=== PATIENT | female | born 1955 | race African-American/Black ===

== ENCOUNTER 2019-04-30 20:37 | Inpatient (IN) | payer MEDICARE, OTHER ==
[2019-04-30] MEDS ORDERED: SODIUM CHLORIDE 1,000 ML IV STA (21:31)
[2019-04-30] MEDS ORDERED: ONDANSETRON 4 MG/2 ML VIAL IVPUSH ONE (21:34)
--- NOTE | 2019-04-30 21:44 | PDOC ---
History of Present Illness - General Stated Complaint: FELL Time Seen by Provider: 04/30/19 20:44 History Source: Patient Exam Limitations: No Limitations - History of Present Illness Initial Comments: 04/30/19 21:32 64 yo female pmh HTN, gout, GERD and vertigo presents to the ED from home after generalized weakness and a fall. Pt states she had an endoscopy 04/17/2019 at [facility] by Dr. Mckeon, since then has had pain and bloating after eating and has not eaten or drank for the last 5 days. Hiatal hernia found and negative biopsy. Pt also admits to no BM for 12 days. Denies CP, SOB, back pain , changes in bowel or bladder habits Pt states she got up to get food, felt the room spinning around her, fell backwards onto her buttocks without hitting head or LOC, denies CASILLAS, changes in vision/speech, weakness on 1 side of her body, CP/SOB/Palpitations prior to or after the fall. Pt was unable to ambulate/get up on her own (pt lives alone, does not require any assist device for ambulation) called maintenance who then called the ambulance. Past History - Past Medical History Allergies/Adverse Reactions: Allergies Allergy/AdvReac Type Severity Reaction Status Date / Time No Known Allergies Allergy Verified 04/30/19 22:36 Home Medications: Ambulatory Orders Carvedilol 12.5 mg PO DAILY 04/30/19 Oxycodone HCl/Acetaminophen [Oxycodone-Acetaminophen 5-325] 1 each PO PRN PRN Pantoprazole Sodium 40 mg PO DAILY 04/30/19 Enoxaparin [Lovenox -] 40 mg SQ DAILY disp.syrin 05/03/19 Promethazine Inj (IM Use Only) [Phenergan (IM Use Only) -] 25 mg IM Q8H PRN amp 05/03/19 Review of Systems - Review of Systems Constitutional: Yes: See HPI HEENTM: Yes: See HPI Respiratory: Yes: See HPI Cardiac (ROS): Yes: See HPI ABD/GI: Yes: See HPI : Yes: See HPI Musculoskeletal: Yes: See HPI Integumentary: Yes: See HPI Neurological: Yes: See HPI *Physical Exam - Physical Exam General Appearance: Yes: Nourished, Appropriately Dressed. No: Apparent Distress HEENT: positive: EOMI, ANIBAL Neck: positive: Supple. negative: Carotid bruit Respiratory/Chest: positive: Lungs Clear, Normal Breath Sounds. negative: Respiratory Distress, Crackles, Rales, Rhonchi, Stridor, Wheezing Cardiovascular: positive: Regular Rhythm, Regular Rate, S1, S2. negative: Edema , JVD, Murmur Vascular Pulses: Dorsalis-Pedis (R): 4+, Doralis-Pedis (L): 4+ Gastrointestinal/Abdominal: positive: Flat, Soft. 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 negative: Facial Droop, Sensory Deficit, Confused, Disoriented, Depressed Affect ED Treatment Course - LABORATORY CBC & Chemistry Diagram: 05/02/19 06:50 05/02/19 06:50 Medical Decision Making - Medical Decision Making 64 yo female pmh HTN, gout, GERD and vertigo presents to the ED from home after generalized weakness and a fall. Pt states she had an endoscopy 04/17/2019 at [facility] by Dr. Mckeon, since then has had pain and bloating after eating and has not eaten or drank for the last 5 days. Hiatal hernia found and negative biopsy. Pt also admits to no BM for 12 days. Denies CP, SOB, back pain , changes in bowel or bladder habits Pt states she got up to get food, felt the room spinning around her, fell backwards onto her buttocks without hitting head or LOC, denies CASILLAS, changes in vision/speech, weakness on 1 side of her body, CP/SOB/Palpitations prior to or after the fall. Pt was unable to ambulate/get up on her own (pt lives alone, does not require any assist device for ambulation) called maintenance who then called the ambulance. Vitals WNL DDX INLT: dehydration, malnutrition, ulcer, SBO, arrhythmia, anemia, electrolyte abnormality Pt friend present, states this is a sudden change in pt ADLs and does not believe she can adequately care for herself at home. EMS state the house was very unkept and pt hoards materials Labs show elevated lactate and low K CXR no acute path Abd x ray no free air or acute path Rectal shows no stool in the vault, stool for blood neg pt will be admitted for hypokalemia, elevated lactate and malnutrition *DC/Admit/Observation/Transfer Diagnosis at time of Disposition: Elevated lactic acid level, Hypokalemia, Abdominal pain - Discharge Dispostion Disposition: TRANSFER ACUTE CARE/OTHER HOSP Condition at time of disposition: Unchanged/Unknown Decision to Admit order: Yes - Referrals - Patient Instructions - Post Discharge Activity
--- NOTE | 2019-04-30 22:15 | PDOC ---
Documentation entered by Gerry Carl SCRIBE, acting as scribe for Lashay Rivera DO. Lashay Rivera DO: This documentation has been prepared by the Siddhartha rosario Daniel, SCRIBE, under my direction and personally reviewed by me in its entirety. I confirm that the documentation accurately reflects all work, treatment, procedures, and medical decision making performed by me. Attending Attestation - Resident Resident Name: Kaleb Alcantar - ED Attending Attestation I have performed the following: I have examined & evaluated the patient, The case was reviewed & discussed with the resident, I agree w/resident's findings & plan, Exceptions are as noted - HPI HPI: 04/30/19 21:48 The patient is a 64 year old female with a past medical history of HTN, GERD, GOUT, and vertigo here today for evaluation of generalized weakness and fall. The patient reports that she has had difficulty eating and had an endoscopy on in [place] which showed a hiatal hernia. She reports today that the room began to spin, she fell backwards (no head strike or loss of consciousness) , and was unable to get up. She states that she hasnt eaten anything in 5 days. She notes associated nausea and vomiting and notes that her last bowel movement was on 04/17/19. Patient denies headache, lightheadedness. Denies fever, chills. Denies chest pain, shortness of breath. Denies diarrhea. Allergies: PCP: Naty Conway - Physicial Exam PE: 04/30/19 22:19 Constitutional: Awake, alert, oriented. No acute distress but disheveled appearing. Head: Normocephalic. Atraumatic Eyes: PERRL. EOMI. Conjunctivae are not pale. ENT: +very dry mucous membranes. Posterior pharynx without exudates or erythema. Uvula midline. Neck: Supple. Full ROM. No lymphadenopathy. Cardiovascular: Regular rate. Regular rhythm. S1, S2 regular. Distal pulses are 2+ and symmetric. Pulmonary/Chest: No evidence of respiratory distress. Clear to auscultation bilaterally No wheezing, rales or rhonchi. Abdominal: +mild epigastric and suprapubic tenderness. Soft and non-distended. No rebound, guarding or rigidity. No organomegaly. No palpable masses. Good bowel sounds. Back: No CVA tenderness. Musculoskeletal: No edema. No cyanosis. No clubbing. Full range of motion in all extremities. No calf tenderness. Radial/pedal pulses are intact and 2+ bilaterally Skin: Skin is warm and dry. No petechiae. No purpura. Neurological: Alert and oriented to person, place, and time. Cranial nerves II -XII are grossly intact. Normal speech. Strength is grossly symmetric. No sensory deficits. Psychiatric: Good eye contact. Normal interaction, affect and behavior. - Medical Decision Making 04/30/19 22:11 a/p: 64yo female with n/v and a feeling of bloating before an EGD performed 04/17 - at [facility] -states on protonix -states protonix has been helping, but decreased po intake x months -50lb wt loss x months -told hiatal hernia on egd -still with n/v - feeling lightheaded and dizzy, fall today - landed on buttock - no loc or head injury - unable to get up -pt lives alone -pt arrives disheveled -will send labs, ekg, cxr, abd xray -no bm since 04/17 -will monitor and reassess 04/30/19 23:44 cxr clear elevated lactate ivf hydration ordered 05/01/19 02:03 pt with elevated lactate low potassium electrolyte abnl will need admission Heart Score/ECG Review - ECG Intrepretation Comment:: 04/30/19 22:11 sinus at 70, nl axis, t wave inversions anterior leads, q waves inferiorly which are age indeterminate, no acute st changes
[2019-04-30 22:21] LABS: BASO % 0.6 % (0-2.0); EOS % 0.1 % (0-4.5); HEMATOCRIT 41.3 % (32.4-45.2); LYMPH % 11.5 % (8-40); MCH 28.8 pg (25.7-33.7); MEAN CELL VOLUME 84.7 fl (80-96); MEAN PLT VOLUME 8.3 fl (7.5-11.1); MONO % 5.3 % (3.8-10.2); NEUT % 82.5 % (42.8-82.8); PLATELET COUNT 261 K/MM3 (134-434); RBC 4.87 M/mm3 (3.60-5.2); WHITE BLOOD COUNT 11.4 K/mm3 (4.0-10.0)
[2019-04-30] MEDS ORDERED: SODIUM CHLORIDE 0.9% 1000 ML INFUS.BAG IV ONE (22:45)
[2019-05-01] MEDS ORDERED: FAMOTIDINE 20 MG/50 ML IVPB 20 MG/50 ML MG IVPB ONE ×2 (00:02→00:09)
[2019-05-01] MEDS ORDERED: MAG HYDROX/AL HYDROX/SIMETH -MYLANTA- ORAL SUSPENSION PO ONE (00:02)
[2019-05-01] MEDS ORDERED: MAG HYDROX/AL HYDROX/SIMETH 30 ML UNIT-DOSE CUP ONE (00:09)
[2019-05-01 00:32] LABS: ALBUMIN 3.5 g/dl (3.4-5.0); BILIRUBIN,TOTAL 1.4 mg/dL (0.2-1); BLOOD UREA NITROGEN 19.2 mg/dL (7-18); CREATININE 0.7 mg/dL (0.55-1.3); TOT PROT 7.5 g/dl (6.4-8.2)
[2019-05-01] MEDS ORDERED: POTASSIUM CHLORIDE 20 MEQ PREMIX IVPB 100 ML IVPB ONE ×2 (00:40→04:17)
[2019-05-01 00:41] LABS: POTASSIUM 2.7 mmol/L (3.5-5.1)
[2019-05-01] MEDS ORDERED: POTASSIUM CHLORIDE TABS 20 MEQ TABLET.ER (FP) PO ONE ×2 (00:55→01:41)
--- NOTE | 2019-05-01 03:31 | PN ---
Teaching Attending Note Name of Resident: Queenie Rubio ATTENDING PHYSICIAN STATEMENT I saw and evaluated the patient. I reviewed the resident's note and discussed the case with the resident. I agree with the resident's findings and plan as documented. SUBJECTIVE: Patient is a 64 year old woman with PMH of HTN, Gout, GERD and vertigo who presents to the ED from home after generalized weakness and a fall. Patient says she got up to get food, felt the room spinning around her, fell backwards onto her buttocks without hitting head or passing out. Denies headache, changes in vision/speech, weakness on one side of her body, palpitations prior to or after the fall. She was unable to ambulate/get up on her own (lives alone, does not require any assist device for ambulation). Has dysphagia with solids and feels like food is stuck in her chest. Patient is an ex-smoker who quit last month and has a family history of GI cancer. She states that she had an endoscopy 04/17/2019 at [facility] by Dr. Mckeon - since then has had pain and bloating after eating and has not eaten or drank for the last 5 days. Hiatal hernia found and negative biopsy. Was supposed to get a colonoscopy, but not yet due to health insurance issues. Has lost a lot of weight recently and had poor oral intake. Patient has not had a BM for 12 days. Denies chest pain, SOB, back pain or changes in bladder habits. OBJECTIVE: Alert and not orthostatic Vital Signs Period Temp Pulse Resp BP Sys/Sy Pulse Ox Last 24 Hr 97.5 F 84 18 149/91 100-100 HEENT: No Jaundice, eye redness or discharge, PERRLA, EOMI. Normocephalic, atraumatic. External ears are normal and hearing is grossly intact. No nasal discharge. Neck: Supple, nontender. No palpable adenopathy or thyromegaly. No JVD Chest: Good effort. Clear to auscultation and percussion. Heart: Regular. No S3, rub or murmur Abdomen: Not distended, soft, epigastric tenderness and no HSM. No rebound or guarding. Normal bowel sounds. Ext: Peripheral pulses intact. No leg edema. Skin: Warm and dry. No petechiae, rash or ecchymosis. Neuro: Alert. Oriented x3. CN 2-12 grossly intact. Sensation grossly intact in all four extremities and DTR are symmetric. Psych: Appropriate mood and affect. Good insight. Home Medications Medication Instructions Recorded Carvedilol 12.5 mg PO DAILY 04/30/19 Hydrochlorothiazide [Hctz -] 0 mg PO DAILY 04/30/19 Oxycodone HCl/Acetaminophen 1 each PO PRN PRN 04/30/19 [Oxycodone-Acetaminophen 5-325] Pantoprazole Sodium 40 mg PO DAILY 04/30/19 Abnormal Lab Results 04/30/19 04/30/19 04/30/19 22:00 22:00 22:50 WBC 11.4 H Absolute Neuts (auto) 9.4 H Potassium 2.7 L* Chloride 95 L Anion Gap 20 H BUN 19.2 H Lactic Acid 3.0 H* Total Bilirubin 1.4 H AST 44 H Alkaline Phosphatase 138 H Creatine Kinase 281 H Lipase 43 L ASSESSMENT AND PLAN: 1. Fall/Rule out Sepsis - Cause of her fall is unclear but sepsis is a concern with the focus being on the hepatobiliary system. Urinalysis is pending and there is no acute abnormality on CXR. Will do sepsis workup, get urinalysis STAT , head/abdomen/pelvic CT, hepatitis serology, trend LFTS and lactic acid while treating with IV Zosyn and IV NS. EKG is pending. Consult GI to continue workup for dysphagia and weight loss. Get results of endoscopy from [facility]. Get TFT and serum Mg+ level. Hypokalemia likely due to HCTZ and poor intake. Will continue IV and oral KCL. 2. Obesity Counseled on the risks associated with obesity. Will provide patient all the necessary assistance, counseling and positive reinforcement to facilitate weight loss. Consult marketing planning manager. 3. Hypertension - Restart suitable outpatient antihypertensive drugs when clinically appropriate. Revise regimen to ensure [id number] excellent BP control and certified addiction counselor patient on the injurious effects of uncontrolled hypertension. Nonpharmacologic measures to control hypertension like weight loss , salt restriction and exercise discussed. Importance of adherence to treatment regimen and attainment of normotension emphasized. 4. DVT prophylaxis - Lovenox 40 mg SQ q 24 hours. 5. Advance directives - Full code
[2019-05-01] MEDS ORDERED: SODIUM CHLORIDE 1,000 ML IV SCH (04:30)
--- NOTE | 2019-05-01 04:34 | HP ---
CHIEF COMPLAINT: vomiting, decreased po intake PCP: Dr. Wilburn HISTORY OF PRESENT ILLNESS: Patient is a 64 year old female with PMH of HTN, GERD, gout, vertigo who presents with nausea, vomiting, and difficulty eating for several weeks. When she eats, she feels the food get stuck at the top of her abdomen and then she vomits. She denies difficulty swallowing fluids. She complains of associated nausea, upper abd pain, and fatigue. She has also had decreased stool since the onset of symptoms. Denies any blood in stool or vomit. She has taken protonix for these symptoms with moderate relief. Pt has lost ~50 pounds (unintentionally ) over the past 3-4 months. No fevers, chills, SOB, chest pain, or urinary symptoms. Pt saw a GI doctor at [facility] one month ago and had an EGD on 04/16 that showed a hiatal hernia. Per pt, biopsies were taken and were all negative. She states that she has not had a colonoscopy in many years. Pt also complains of vertigo. These episodes occur 1-2 times per year and are preceded with PND. Last episode occurred yesterday and pt fell. She did not hit her head or lose consciousness. ER course was notable for: (1) Lactic acidosis: WBC: 11.4, K: 2.7, A, Lactic acid: 3; but afebrile, stable vitals (2) CXR, Abd XR: no acute pathology noted (3) Given 2L boluses NS, zofran, myl[place], pepcid. Repleted potassium Recent Travel: denies PAST MEDICAL HISTORY: HTN GERD Gout vertigo PAST SURGICAL HISTORY: Social History: Smoking: quit 1 month ago (previously smoked 6 cigarettes/day for many years) Alcohol: ocassionally Drugs: denies Family History: Mother: HTN Father: colon CA Grandfather: gastric CA Allergies No Known Allergies Allergy (Verified 04/30/19 22:36) HOME MEDICATIONS: Home Medications Medication Instructions Recorded Carvedilol 12.5 mg PO DAILY 04/30/19 Hydrochlorothiazide [Hctz -] 0 mg PO DAILY 04/30/19 Oxycodone HCl/Acetaminophen 1 each PO PRN PRN 04/30/19 [Oxycodone-Acetaminophen 5-325] Pantoprazole Sodium 40 mg PO DAILY 04/30/19 REVIEW OF SYSTEMS CONSTITUTIONAL: generalized weakness, loss of appetite, weight change Absent: fever, chills, diaphoresis, malais HEENT: PND, difficulty swallowing Absent: rhinorrhea, nasal congestion, throat pain, throat swelling, mouth swelling, ear pain, eye pain, visual changes CARDIOVASCULAR: Absent: chest pain, syncope, palpitations, irregular heart rate, lightheadedness , peripheral edema RESPIRATORY: Absent: cough, shortness of breath, dyspnea with exertion, orthopnea, wheezing, stridor, hemoptysis GASTROINTESTINAL: nausea, vomiting, RUQ pain Absent: abdominal pain, abdominal distension, nausea, vomiting, diarrhea, constipation, melena, hematochezia GENITOURINARY: Absent: dysuria, frequency, urgency, hesitancy, hematuria, flank pain, genital pain MUSCULOSKELETAL: Absent: myalgia, arthralgia, joint swelling, back pain, neck pain SKIN: Absent: rash, itching, pallor HEMATOLOGIC/IMMUNOLOGIC: Absent: easy bleeding, easy bruising, lymphadenopathy, frequent infections ENDOCRINE: Absent: unexplained weight gain, unexplained weight loss, heat intolerance, cold intolerance NEUROLOGIC: vertigo Absent: headache, focal weakness or paresthesias, dizziness, unsteady gait, seizure, mental status changes, bladder or bowel incontinence PSYCHIATRIC: Absent: anxiety, depression, suicidal or homicidal ideation, hallucinations. PHYSICAL EXAMINATION Vital Signs - 24 hr 04/30/19 20:50 Temperature 97.5 F L Pulse Rate 84 Respiratory 18 Rate Blood Pressure 149/91 O2 Sat by Pulse 100 Oximetry (%) GENERAL: Awake, alert, and fully oriented, in no acute distress. HEAD: Normal with no signs of trauma. EYES: Pupils equal, round and reactive to light, extraocular movements intact, sclera anicteric, conjunctiva clear. No lid lag. EARS, NOSE, THROAT: Ears normal, nares patent, oropharynx clear without exudates. Moist mucous membranes. NECK: Normal range of motion, supple without lymphadenopathy, JVD, or masses. LUNGS: Breath sounds equal, clear to auscultation bilaterally. No wheezes, and no crackles. No accessory muscle use. HEART: Regular rate and rhythm, normal S1 and S2 without murmur, rub or gallop. ABDOMEN: Soft, RUQ tenderness, not distended, normoactive bowel sounds, no guarding, no rebound, no masses. No hepatomegaly or splenomegaly. RECTAL: No internal or external hemorrhoids. No masses. Good sphincter tone. No gross blood on glove. MUSCULOSKELETAL: Normal range of motion at all joints. No bony deformities or tenderness. No CVA tenderness. UPPER EXTREMITIES: 2+ pulses, warm, well-perfused. No cyanosis. No clubbing. No peripheral edema. LOWER EXTREMITIES: 2+ pulses, warm, well-perfused. No calf tenderness. No peripheral edema. Toes cold to touch and poorly kempt. NEUROLOGICAL: Cranial nerves II-XII intact. Normal speech. Normal gait. PSYCHIATRIC: Cooperative. Good eye contact. Appropriate mood and affect. SKIN: Warm, dry, normal turgor, no rashes or lesions noted, normal capillary refill. Laboratory Results - last 24 hr CBC, BMP 04/30/19 22:00 04/30/19 22:50 Hepatic Panel Total Bilirubin 1.4 mg/dL (0.2-1) H AST 44 U/L (15-37) H ALT 47 U/L (13-61) Alkaline Phosphatase 138 U/L (45-117) H Albumin 3.5 g/dl (3.4-5.0) ASSESSMENT/PLAN: Patient is a 64 year old female with PMH of HTN, GERD, gout, vertigo who presents with nausea, vomiting, and difficulty eating for several weeks. #Lactic acidosis Concern for sepsis, unknown source. Given pt's RUQ tenderness, GI symptoms, and elevated LFTs/Tbili, suspect hepatobiliary cause Abd XR showed no acute pathology F/u CT abd/pelvis and head F/u UA, hepatitis serology, trend lactic acid, and LFTs Will empirically treat with IV zosyn 3.375mg Q8H and IV NS @ 100ml/hr #Dysphagia, vomiting, decreased po intake, and weight loss Recent EGD showed hiatal hernia, neg biopsies. Obtain official EGD results from [facility]. Consulting GI for dysphagia w/u Hypokalemia likely 2/2 to decreased po intake as well as Hctz medication. Repleting with KCl F/u serum magnesium and cont to trend LFTs #HTN Hold BP medications in possible setting of sepsis and poor po intake Will restart if pt becomes hypertensive/when clinically appropriate #Vertigo Recommend meclizime if needed Vestibular rehab as outpt #FEN IV NS @ 100ml/hr Repleting potassium with IV KCl NPO for now #DVT ppx Lovenox 40mg SQ #Dispo Monitor on med-surg Full code Visit type - Emergency Visit Emergency Visit: Yes ED Registration Date: 05/01/19 Care time: The patient presented to the Emergency Department on the above date and was hospitalized for further evaluation of their emergent condition. - New Patient This patient is new to me today: Yes Date on this admission: 05/01/19 - Critical Care Critical Care patient: No ATTENDING PHYSICIAN STATEMENT I saw and evaluated the patient. I reviewed the resident's note and discussed the case with the resident. I agree with the resident's findings and plan as documented. SUBJECTIVE: OBJECTIVE: ASSESSMENT AND PLAN:
[2019-05-01] MEDS ORDERED: PIPERACILLIN/TAZOB 3.375 GM 3.375 GM/50 ML BAG IVPB ONE (05:23)
[2019-05-01 05:31] LABS: EPI CELLS 4.9 /HPF (0-5/HPF); HYALINE CASTS 33 /lpf (0-8); PH,URINE 6.5 (5.0-8.0); URINE APPEARANCE CLOUDY; URINE BACTERIA 0.5 /hpf (NEGATIVE); URINE BILIRUBIN 3+ (NEGATIVE); URINE COLOR DK YELLOW; URINE GLUCOSE (UA) NEGATIVE (NEGATIVE); URINE KETONE 2+ (NEGATIVE); URINE LEUK ESTERASE TRACE (NEGATIVE); URINE NITRITE POSITIVE (NEGATIVE); URINE PROTEIN 1+ (NEGATIVE); URINE WBC 3 /hpf (0-5)
[2019-05-01] MEDS: PIPERACILLIN/TAZOB 3.375 GM 3.375 GM in DEXTROSE 5%-WATER - 50 ML IVPB SCH ×4 (05:35→18:49)
[2019-05-01] MEDS ORDERED: PANTOPRAZOLE 40 MG TABLET (FP) PO SCH (07:00)
--- NOTE | 2019-05-01 07:31 | HP ---
CHIEF COMPLAINT: PCP: HISTORY OF PRESENT ILLNESS: ER course was notable for: (1) (2) (3) Recent Travel: PAST MEDICAL HISTORY: PAST SURGICAL HISTORY: Social History: Smoking: Alcohol: Drugs: Family History: Allergies No Known Allergies Allergy (Verified 04/30/19 22:36) HOME MEDICATIONS: Home Medications Medication Instructions Recorded Carvedilol 12.5 mg PO DAILY 04/30/19 Hydrochlorothiazide [Hctz -] 0 mg PO DAILY 04/30/19 Oxycodone HCl/Acetaminophen 1 each PO PRN PRN 04/30/19 [Oxycodone-Acetaminophen 5-325] Pantoprazole Sodium 40 mg PO DAILY 04/30/19 REVIEW OF SYSTEMS CONSTITUTIONAL: Absent: fever, chills, diaphoresis, generalized weakness, malaise, loss of appetite, weight change HEENT: Absent: rhinorrhea, nasal congestion, throat pain, throat swelling, difficulty swallowing, mouth swelling, ear pain, eye pain, visual changes CARDIOVASCULAR: Absent: chest pain, syncope, palpitations, irregular heart rate, lightheadedness , peripheral edema RESPIRATORY: Absent: cough, shortness of breath, dyspnea with exertion, orthopnea, wheezing, stridor, hemoptysis GASTROINTESTINAL: Absent: abdominal pain, abdominal distension, nausea, vomiting, diarrhea, constipation, melena, hematochezia GENITOURINARY: Absent: dysuria, frequency, urgency, hesitancy, hematuria, flank pain, genital pain MUSCULOSKELETAL: Absent: myalgia, arthralgia, joint swelling, back pain, neck pain SKIN: Absent: rash, itching, pallor HEMATOLOGIC/IMMUNOLOGIC: Absent: easy bleeding, easy bruising, lymphadenopathy, frequent infections ENDOCRINE: Absent: unexplained weight gain, unexplained weight loss, heat intolerance, cold intolerance NEUROLOGIC: Absent: headache, focal weakness or paresthesias, dizziness, unsteady gait, seizure, mental status changes, bladder or bowel incontinence PSYCHIATRIC: Absent: anxiety, depression, suicidal or homicidal ideation, hallucinations. PHYSICAL EXAMINATION Vital Signs - 24 hr 04/30/19 05/01/19 05/01/19 20:50 05:53 07:00 Temperature 97.5 F L 97.6 F 98.4 F Pulse Rate 84 61 Pulse Rate [ 65 Right Radial] Respiratory 18 18 20 Rate Blood Pressure 149/91 134/89 Blood Pressure 158/67 [Left Arm] O2 Sat by Pulse 100 100 Oximetry (%) GENERAL: Awake, alert, and fully oriented, in no acute distress. HEAD: Normal with no signs of trauma. EYES: Pupils equal, round and reactive to light, extraocular movements intact, sclera anicteric, conjunctiva clear. No lid lag. EARS, NOSE, THROAT: Ears normal, nares patent, oropharynx clear without exudates. Moist mucous membranes. NECK: Normal range of motion, supple without lymphadenopathy, JVD, or masses. LUNGS: Breath sounds equal, clear to auscultation bilaterally. No wheezes, and no crackles. No accessory muscle use. HEART: Regular rate and rhythm, normal S1 and S2 without murmur, rub or gallop. ABDOMEN: Soft, nontender, not distended, normoactive bowel sounds, no guarding, no rebound, no masses. No hepatomegaly or splenomegaly. MUSCULOSKELETAL: Normal range of motion at all joints. No bony deformities or tenderness. No CVA tenderness. UPPER EXTREMITIES: 2+ pulses, warm, well-perfused. No cyanosis. No clubbing. No peripheral edema. LOWER EXTREMITIES: 2+ pulses, warm, well-perfused. No calf tenderness. No peripheral edema. NEUROLOGICAL: Cranial nerves II-XII intact. Normal speech. Normal gait. PSYCHIATRIC: Cooperative. Good eye contact. Appropriate mood and affect. SKIN: Warm, dry, normal turgor, no rashes or lesions noted, normal capillary refill. Laboratory Results - last 24 hr 04/30/19 04/30/19 04/30/19 22:00 22:00 22:00 WBC 11.4 H RBC 4.87 Hgb 14.0 Hct 41.3 MCV 84.7 MCH 28.8 MCHC 34.0 RDW 14.0 Plt Count 261 MPV 8.3 Absolute Neuts (auto) 9.4 H Neutrophils % 82.5 Lymphocytes % 11.5 Monocytes % 5.3 Eosinophils % 0.1 Basophils % 0.6 Nucleated RBC % 0 Sodium Cancelled Potassium Cancelled Chloride Cancelled Carbon Dioxide Cancelled Anion Gap Cancelled BUN Cancelled Creatinine Cancelled Est GFR (CKD-EPI)AfAm Cancelled Est GFR (CKD-EPI)NonAf Cancelled Random Glucose Cancelled Lactic Acid 3.0 H* Calcium Cancelled Magnesium Total Bilirubin Cancelled AST Cancelled ALT Cancelled Alkaline Phosphatase Cancelled Creatine Kinase Cancelled Creatine Kinase Index CK-MB (CK-2) Troponin I Cancelled Total Protein Cancelled Albumin Cancelled Lipase Cancelled Urine Color Urine Appearance Urine pH Ur Specific [place] Urine Protein Urine Glucose (UA) Urine Ketones Urine Blood Urine Nitrite Urine Bilirubin Urine Urobilinogen Ur Leukocyte Esterase Urine WBC (Auto) Urine Casts (Auto) U Epithel Cells (Auto) Urine Bacteria (Auto) Stool Occult Blood 04/30/19 04/30/19 05/01/19 22:29 22:50 03:25 WBC RBC Hgb Hct MCV MCH MCHC RDW Plt Count MPV Absolute Neuts (auto) Neutrophils % Lymphocytes % Monocytes % Eosinophils % Basophils % Nucleated RBC % Sodium 139 Potassium 2.7 L* Chloride 95 L Carbon Dioxide 24 Anion Gap 20 H BUN 19.2 H Creatinine 0.7 Est GFR (CKD-EPI)AfAm 106.12 Est GFR (CKD-EPI)NonAf 91.56 Random Glucose 96 Lactic Acid 1.9 Calcium 10.0 Magnesium 2.0 Total Bilirubin 1.4 H AST 44 H ALT 47 Alkaline Phosphatase 138 H Creatine Kinase 281 H Creatine Kinase Index 1.2 CK-MB (CK-2) 3.5 Troponin I 0.02 Total Protein 7.5 Albumin 3.5 Lipase 43 L Urine Color Urine Appearance Urine pH Ur Specific [place] Urine Protein Urine Glucose (UA) Urine Ketones Urine Blood Urine Nitrite Urine Bilirubin Urine Urobilinogen Ur Leukocyte Esterase Urine WBC (Auto) Urine Casts (Auto) U Epithel Cells (Auto) Urine Bacteria (Auto) Stool Occult Blood Negative 05/01/19 05:00 WBC RBC Hgb Hct MCV MCH MCHC RDW Plt Count MPV Absolute Neuts (auto) Neutrophils % Lymphocytes % Monocytes % Eosinophils % Basophils % Nucleated RBC % Sodium Potassium Chloride Carbon Dioxide Anion Gap BUN Creatinine Est GFR (CKD-EPI)AfAm Est GFR (CKD-EPI)NonAf Random Glucose Lactic Acid Calcium Magnesium Total Bilirubin AST ALT Alkaline Phosphatase Creatine Kinase Creatine Kinase Index CK-MB (CK-2) Troponin I Total Protein Albumin Lipase Urine Color Dk yellow Urine Appearance Cloudy Urine pH 6.5 Ur Specific [place] 1.028 Urine Protein 1+ H Urine Glucose (UA) Negative Urine Ketones 2+ H Urine Blood Negative Urine Nitrite Positive H Urine Bilirubin 3+ H Urine Urobilinogen 1.0 Ur Leukocyte Esterase Trace Urine WBC (Auto) 3 Urine Casts (Auto) 33 U Epithel Cells (Auto) 4.9 Urine Bacteria (Auto) 0.5 Stool Occult Blood ASSESSMENT/PLAN: ATTENDING PHYSICIAN STATEMENT I saw and evaluated the patient. I reviewed the resident's note and discussed the case with the resident. I agree with the resident's findings and plan as documented. SUBJECTIVE: OBJECTIVE: ASSESSMENT AND PLAN:
[2019-05-01] MEDS ORDERED: PT OWN MED DRAWER 7, Y5N ONE (07:35)
[2019-05-01 08:21] VITALS: BMI 34.0
[2019-05-01] MEDS ORDERED: D5-NS + 20 MEQ KCL - 20 MEQ/1,000 ML INFUS.BAG IV SCH (09:45)
[2019-05-01] MEDS ORDERED: D5-LR+20 MEQ KCL - 20 MEQ/1,000 ML INFUS.BAG IV SCH (09:45)
[2019-05-01] MEDS ORDERED: PIPERACILLIN/TAZOBACTAM 3.375 GM VIAL IVPB ONE ×2 (09:58→17:13)
[2019-05-01] MEDS ORDERED: DEXTROSE 5%-WATER - 50 ML IVPB ONE ×2 (09:59→17:13)
[2019-05-01] MEDS ORDERED: PANTOPRAZOLE SODIUM 40 MG VIAL IVPUSH SCH (10:00)
[2019-05-01] MEDS: ENOXAPARIN NA (PORCINE) 40 MG/0.4 ML DISP.SYRIN SQ SCH (10:28)
[2019-05-01 11:16] LABS: BASO % 0.1 % (0-2.0); EOS % 0.2 % (0-4.5); HEMATOCRIT 34.6 % (32.4-45.2); LYMPH % 16.5 % (8-40); MCH 29.2 pg (25.7-33.7); MCHC 34.6 g/dl (32.0-36.0); MEAN CELL VOLUME 84.3 fl (80-96); MONO % 6.7 % (3.8-10.2); NEUT % 76.5 % (42.8-82.8); PLATELET COUNT 217 K/MM3 (134-434); RDW 13.8 % (11.6-15.6); WHITE BLOOD COUNT 8.6 K/mm3 (4.0-10.0)
[2019-05-01 11:33] LABS: URINE RBC 5.7 /hpf (0-4)
[2019-05-01 11:34] LABS: BILIRUBIN,TOTAL 1.3 mg/dL (0.2-1); BLOOD UREA NITROGEN 16.2 mg/dL (7-18); CALCIUM 8.6 mg/dL (8.5-10.1); CREATININE 0.8 mg/dL (0.55-1.3); POTASSIUM 3.2 mmol/L (3.5-5.1); TOT PROT 6.2 g/dl (6.4-8.2)
[2019-05-01 11:36] LABS: ALBUMIN 2.9 g/dl (3.4-5.0); BILIRUBIN,DIRECT 0.6 mg/dL (0.0-0.2); BILIRUBIN,TOTAL 1.3 mg/dL (0.2-1); TOT PROT 6.2 g/dl (6.4-8.2)
--- NOTE | 2019-05-01 11:38 | EKG ---
Test Reason : Blood Pressure : / mmHG Vent. Rate : 070 BPM Atrial Rate : 070 BPM P-R Int : 150 ms QRS Dur : 088 ms QT Int : 452 ms P-R-T Axes : 057 023 028 degrees QTc Int : 488 ms POOR DATA QUALITY, INTERPRETATION MAY BE ADVERSELY AFFECTED NORMAL SINUS RHYTHM INFERIOR INFARCT , AGE UNDETERMINED T WAVE ABNORMALITY, CONSIDER ANTERIOR ISCHEMIA ABNORMAL ECG NO PREVIOUS ECGS AVAILABLE Confirmed by GEROGES GONZALEZ, SESAR ([id number]) on 05/01/2019 11:38:31 AM Referred By: Confirmed By:SESAR SU MD
--- NOTE | 2019-05-01 13:25 | PN ---
Teaching Attending Note Name of Resident: Rakesh Maradiaga ATTENDING PHYSICIAN STATEMENT I saw and evaluated the patient. I reviewed the resident's note and discussed the case with the resident. I agree with the resident's findings and plan as documented with exceptions below. SUBJECTIVE: Patient seen and examined. reports ongoing intermittent nausea, abdominal pain, poor appetite, unintentional weight loss and poor oral intake. OBJECTIVE: Vital Signs Period Temp Pulse Resp BP Sys/Sy Pulse Ox Last 24 Hr 97.5 F-98.4 F 57-84 18-20 134-158/67-91 100-100 Intake & Output 04/28/19 04/29/19 04/30/19 05/01/19 23:59 23:59 23:59 23:59 Intake Total 0 Balance 0 Weight 184 lb 198 lb General: lying in bed in no acute distress Neck; soft, supple Chest: CTAB, no rales or wheezing Abdomen:soft, vague generalized tenderness, on deep palpation, no voluntary or involuntary guarding or rigidity, pos bowel sounds extremities: no edema Home Medications Medication Instructions Recorded Carvedilol 12.5 mg PO DAILY 04/30/19 Hydrochlorothiazide [Hctz -] 0 mg PO DAILY 04/30/19 Oxycodone HCl/Acetaminophen 1 each PO PRN PRN 04/30/19 [Oxycodone-Acetaminophen 5-325] Pantoprazole Sodium 40 mg PO DAILY 04/30/19 Active Medications Enoxaparin Sodium (Lovenox -) 40 mg SQ DAILY PATRICK Last Admin: 05/01/19 10:28 Dose: 40 mg Piperacillin Sod/Tazobactam (Sod 3.375 gm/ Dextrose) 50 mls @ 100 mls/hr IVPB Q8H-IV PATRICK; Protocol Piperacillin Sod/Tazobactam (Sod 3.375 gm/ Dextrose) 50 mls @ 100 mls/hr IVPB Q8H-IV PATRICK Stop: 05/01/19 18:29 Last Admin: 05/01/19 10:28 Dose: 100 mls/hr Dextrose/Sodium Chloride (Dextrose 5%-Normal Saline+20 Meq Kcl -) 20 meq in 1, 000 mls @ 100 mls/hr IV ASDIR PATRICK Last Admin: 05/01/19 10:27 Dose: 100 mls/hr Potassium Chloride (Potassium Chloride 10 Meq Premix Ivpb -) 10 meq in 100 mls @ 100 mls/hr IVPB Q60M PATRICK Stop: 05/01/19 15:29 Pantoprazole Sodium (Protonix Iv) 40 mg IVPUSH DAILY [facility] Last Admin: 05/01/19 10:28 Dose: Not Given Laboratory Results - last 24 hr 04/30/19 04/30/19 04/30/19 22:00 22:00 22:00 WBC 11.4 H RBC 4.87 Hgb 14.0 Hct 41.3 MCV 84.7 MCH 28.8 MCHC 34.0 RDW 14.0 Plt Count 261 MPV 8.3 Absolute Neuts (auto) 9.4 H Neutrophils % 82.5 Lymphocytes % 11.5 Monocytes % 5.3 Eosinophils % 0.1 Basophils % 0.6 Nucleated RBC % 0 Sodium Cancelled Potassium Cancelled Chloride Cancelled Carbon Dioxide Cancelled Anion Gap Cancelled BUN Cancelled Creatinine Cancelled Est GFR (CKD-EPI)AfAm Cancelled Est GFR (CKD-EPI)NonAf Cancelled Random Glucose Cancelled Lactic Acid 3.0 H* Calcium Cancelled Magnesium Total Bilirubin Cancelled Direct Bilirubin AST Cancelled ALT Cancelled Alkaline Phosphatase Cancelled Creatine Kinase Cancelled Creatine Kinase Index CK-MB (CK-2) Troponin I Cancelled Total Protein Cancelled Albumin Cancelled Lipase Cancelled Urine Color Urine Appearance Urine pH Ur Specific [place] Urine Protein Urine Glucose (UA) Urine Ketones Urine Blood Urine Nitrite Urine Bilirubin Urine Urobilinogen Ur Leukocyte Esterase Urine WBC (Auto) Urine RBC (Auto) Urine Casts (Auto) U Pathogenic Cast Auto U Epithel Cells (Auto) Urine Bacteria (Auto) Stool Occult Blood 04/30/19 04/30/19 05/01/19 22:29 22:50 03:25 WBC RBC Hgb Hct MCV MCH MCHC RDW Plt Count MPV Absolute Neuts (auto) Neutrophils % Lymphocytes % Monocytes % Eosinophils % Basophils % Nucleated RBC % Sodium 139 Potassium 2.7 L* Chloride 95 L Carbon Dioxide 24 Anion Gap 20 H BUN 19.2 H Creatinine 0.7 Est GFR (CKD-EPI)AfAm 106.12 Est GFR (CKD-EPI)NonAf 91.56 Random Glucose 96 Lactic Acid 1.9 Calcium 10.0 Magnesium 2.0 Total Bilirubin 1.4 H Direct Bilirubin AST 44 H ALT 47 Alkaline Phosphatase 138 H Creatine Kinase 281 H Creatine Kinase Index 1.2 CK-MB (CK-2) 3.5 Troponin I 0.02 Total Protein 7.5 Albumin 3.5 Lipase 43 L Urine Color Urine Appearance Urine pH Ur Specific [place] Urine Protein Urine Glucose (UA) Urine Ketones Urine Blood Urine Nitrite Urine Bilirubin Urine Urobilinogen Ur Leukocyte Esterase Urine WBC (Auto) Urine RBC (Auto) Urine Casts (Auto) U Pathogenic Cast Auto U Epithel Cells (Auto) Urine Bacteria (Auto) Stool Occult Blood Negative 05/01/19 05/01/19 05/01/19 05:00 10:10 10:10 WBC 8.6 RBC 4.10 Hgb 12.0 Hct 34.6 D MCV 84.3 MCH 29.2 MCHC 34.6 RDW 13.8 Plt Count 217 MPV 8.0 Absolute Neuts (auto) 6.5 Neutrophils % 76.5 Lymphocytes % 16.5 D Monocytes % 6.7 Eosinophils % 0.2 D Basophils % 0.1 Nucleated RBC % 0 Sodium 142 Potassium 3.2 L Chloride 104 Carbon Dioxide 26 Anion Gap 12 BUN 16.2 Creatinine 0.8 Est GFR (CKD-EPI)AfAm 90.30 Est GFR (CKD-EPI)NonAf 77.91 Random Glucose 97 Lactic Acid Calcium 8.6 Magnesium Total Bilirubin 1.3 H Direct Bilirubin AST 43 H ALT 40 Alkaline Phosphatase 112 Creatine Kinase Creatine Kinase Index CK-MB (CK-2) Troponin I Total Protein 6.2 L Albumin 3.0 L Lipase Urine Color Dk yellow Urine Appearance Cloudy Urine pH 6.5 Ur Specific [place] 1.028 Urine Protein 1+ H Urine Glucose (UA) Negative Urine Ketones 2+ H Urine Blood Negative Urine Nitrite Positive H Urine Bilirubin 3+ H Urine Urobilinogen 1.0 Ur Leukocyte Esterase Trace Urine WBC (Auto) 3 Urine RBC (Auto) 5.7 Urine Casts (Auto) 33 U Pathogenic Cast Auto None seen U Epithel Cells (Auto) 4.9 Urine Bacteria (Auto) 0.5 Stool Occult Blood 05/01/19 05/01/19 10:10 10:10 WBC RBC Hgb Hct MCV MCH MCHC RDW Plt Count MPV Absolute Neuts (auto) Neutrophils % Lymphocytes % Monocytes % Eosinophils % Basophils % Nucleated RBC % Sodium Cancelled Potassium Cancelled Chloride Cancelled Carbon Dioxide Cancelled Anion Gap Cancelled BUN Cancelled Creatinine Cancelled Est GFR (CKD-EPI)AfAm Cancelled Est GFR (CKD-EPI)NonAf Cancelled Random Glucose Cancelled Lactic Acid 1.4 Calcium Cancelled Magnesium 2.0 Total Bilirubin 1.3 H Direct Bilirubin 0.6 H AST 45 H ALT 39 Alkaline Phosphatase 116 Creatine Kinase Creatine Kinase Index CK-MB (CK-2) Troponin I Total Protein 6.2 L Albumin 2.9 L Lipase Urine Color Urine Appearance Urine pH Ur Specific [place] Urine Protein Urine Glucose (UA) Urine Ketones Urine Blood Urine Nitrite Urine Bilirubin Urine Urobilinogen Ur Leukocyte Esterase Urine WBC (Auto) Urine RBC (Auto) Urine Casts (Auto) U Pathogenic Cast Auto U Epithel Cells (Auto) Urine Bacteria (Auto) Stool Occult Blood ASSESSMENT AND PLAN: 64 yof with PMhx of HTN, GERD, gout, vertigo, hiatal hernia admitted with nausea , vomiting, dysphagia abdominal pain and weight loss. -Nausea, vomiting, abdominal pain, early satiety, weight loss, r/o Infectious vs inflammatory bowel disease, malignancy -Lactic acidosis, suspect from hypovolumia -Severe hypokalemia -Hiatal hernia -Fall -HTN -Gout Plan: Follow up CT A/P. Emperic zosyn, d/c abx if no concerns on imaging. patient with ongoing GI concerns, s/p recent EGD. Speech/swallow eval. GI input, inpatient vs outpatient w/u, will defer to GI. IVF, nutrition consult Replete K. Screen for infection, low suspicion currently. Follow up CT brain though low suspicion. PT eval. resume coreg as tolerated. reconcile home meds [id number] lovenox Dispo pending clinical improvement and disposition arrangements. Discussed with patient and nursing, all questions answered.
--- NOTE | 2019-05-01 13:48 | PN ---
Physical Exam: SUBJECTIVE: Patient seen and examined at bed side , complain of voinitng and nausea and abdominal pain med epigastric. she reports 50 pound weight loss in 4 month recent EGD at [facility] with acid reflux and hiatal hernia , negative biopsy per pt OBJECTIVE: Vital Signs Period Temp Pulse Resp BP Sys/Sy Pulse Ox Last 24 Hr 97.5 F-98.4 F 57-84 18-20 134-158/67-91 100-100 GENERAL: AAOx3 in NAD HEAD: NC/AT EYES: , Conjunctiva clear, sclera anicteric ENT: dry mucous membrane NECK: Supple, no JVD LUNGS: CTA B/L, no crackles no wheezing no accessory muscle use. HEART: RRR, NSR, normal s1, s2, murmur no M/R/G ABDOMEN: Soft, NDmid epigastric tenderness and lower abdominal tenderness , +BS 4 Q, no CVA Tenderness LOWER EXTREMITIES: no edema, +2DP pulse, NEUROLOGICAL: No focal deficit. Normal speech. gait not observed. PSYCHIATRIC: Cooperative. Good eye contact. Appropriate mood and affect. SKIN: Warm, dry, Laboratory Results - last 24 hr 04/30/19 04/30/19 04/30/19 22:00 22:00 22:00 WBC 11.4 H RBC 4.87 Hgb 14.0 Hct 41.3 MCV 84.7 MCH 28.8 MCHC 34.0 RDW 14.0 Plt Count 261 MPV 8.3 Absolute Neuts (auto) 9.4 H Neutrophils % 82.5 Lymphocytes % 11.5 Monocytes % 5.3 Eosinophils % 0.1 Basophils % 0.6 Nucleated RBC % 0 Sodium Cancelled Potassium Cancelled Chloride Cancelled Carbon Dioxide Cancelled Anion Gap Cancelled BUN Cancelled Creatinine Cancelled Est GFR (CKD-EPI)AfAm Cancelled Est GFR (CKD-EPI)NonAf Cancelled Random Glucose Cancelled Lactic Acid 3.0 H* Calcium Cancelled Magnesium Total Bilirubin Cancelled Direct Bilirubin AST Cancelled ALT Cancelled Alkaline Phosphatase Cancelled Creatine Kinase Cancelled Creatine Kinase Index CK-MB (CK-2) Troponin I Cancelled Total Protein Cancelled Albumin Cancelled Lipase Cancelled Urine Color Urine Appearance Urine pH Ur Specific [place] Urine Protein Urine Glucose (UA) Urine Ketones Urine Blood Urine Nitrite Urine Bilirubin Urine Urobilinogen Ur Leukocyte Esterase Urine WBC (Auto) Urine RBC (Auto) Urine Casts (Auto) U Pathogenic Cast Auto U Epithel Cells (Auto) Urine Bacteria (Auto) Stool Occult Blood 04/30/19 04/30/19 05/01/19 22:29 22:50 03:25 WBC RBC Hgb Hct MCV MCH MCHC RDW Plt Count MPV Absolute Neuts (auto) Neutrophils % Lymphocytes % Monocytes % Eosinophils % Basophils % Nucleated RBC % Sodium 139 Potassium 2.7 L* Chloride 95 L Carbon Dioxide 24 Anion Gap 20 H BUN 19.2 H Creatinine 0.7 Est GFR (CKD-EPI)AfAm 106.12 Est GFR (CKD-EPI)NonAf 91.56 Random Glucose 96 Lactic Acid 1.9 Calcium 10.0 Magnesium 2.0 Total Bilirubin 1.4 H Direct Bilirubin AST 44 H ALT 47 Alkaline Phosphatase 138 H Creatine Kinase 281 H Creatine Kinase Index 1.2 CK-MB (CK-2) 3.5 Troponin I 0.02 Total Protein 7.5 Albumin 3.5 Lipase 43 L Urine Color Urine Appearance Urine pH Ur Specific [place] Urine Protein Urine Glucose (UA) Urine Ketones Urine Blood Urine Nitrite Urine Bilirubin Urine Urobilinogen Ur Leukocyte Esterase Urine WBC (Auto) Urine RBC (Auto) Urine Casts (Auto) U Pathogenic Cast Auto U Epithel Cells (Auto) Urine Bacteria (Auto) Stool Occult Blood Negative 05/01/19 05/01/19 05/01/19 05:00 10:10 10:10 WBC 8.6 RBC 4.10 Hgb 12.0 Hct 34.6 D MCV 84.3 MCH 29.2 MCHC 34.6 RDW 13.8 Plt Count 217 MPV 8.0 Absolute Neuts (auto) 6.5 Neutrophils % 76.5 Lymphocytes % 16.5 D Monocytes % 6.7 Eosinophils % 0.2 D Basophils % 0.1 Nucleated RBC % 0 Sodium 142 Potassium 3.2 L Chloride 104 Carbon Dioxide 26 Anion Gap 12 BUN 16.2 Creatinine 0.8 Est GFR (CKD-EPI)AfAm 90.30 Est GFR (CKD-EPI)NonAf 77.91 Random Glucose 97 Lactic Acid Calcium 8.6 Magnesium Total Bilirubin 1.3 H Direct Bilirubin AST 43 H ALT 40 Alkaline Phosphatase 112 Creatine Kinase Creatine Kinase Index CK-MB (CK-2) Troponin I Total Protein 6.2 L Albumin 3.0 L Lipase Urine Color Dk yellow Urine Appearance Cloudy Urine pH 6.5 Ur Specific [place] 1.028 Urine Protein 1+ H Urine Glucose (UA) Negative Urine Ketones 2+ H Urine Blood Negative Urine Nitrite Positive H Urine Bilirubin 3+ H Urine Urobilinogen 1.0 Ur Leukocyte Esterase Trace Urine WBC (Auto) 3 Urine RBC (Auto) 5.7 Urine Casts (Auto) 33 U Pathogenic Cast Auto None seen U Epithel Cells (Auto) 4.9 Urine Bacteria (Auto) 0.5 Stool Occult Blood 05/01/19 05/01/19 10:10 10:10 WBC RBC Hgb Hct MCV MCH MCHC RDW Plt Count MPV Absolute Neuts (auto) Neutrophils % Lymphocytes % Monocytes % Eosinophils % Basophils % Nucleated RBC % Sodium Cancelled Potassium Cancelled Chloride Cancelled Carbon Dioxide Cancelled Anion Gap Cancelled BUN Cancelled Creatinine Cancelled Est GFR (CKD-EPI)AfAm Cancelled Est GFR (CKD-EPI)NonAf Cancelled Random Glucose Cancelled Lactic Acid 1.4 Calcium Cancelled Magnesium 2.0 Total Bilirubin 1.3 H Direct Bilirubin 0.6 H AST 45 H ALT 39 Alkaline Phosphatase 116 Creatine Kinase Creatine Kinase Index CK-MB (CK-2) Troponin I Total Protein 6.2 L Albumin 2.9 L Lipase Urine Color Urine Appearance Urine pH Ur Specific [place] Urine Protein Urine Glucose (UA) Urine Ketones Urine Blood Urine Nitrite Urine Bilirubin Urine Urobilinogen Ur Leukocyte Esterase Urine WBC (Auto) Urine RBC (Auto) Urine Casts (Auto) U Pathogenic Cast Auto U Epithel Cells (Auto) Urine Bacteria (Auto) Stool Occult Blood Active Medications Generic Name Dose Route Start Last Admin Trade Name Freq PRN Reason Stop Dose Admin Carvedilol 6.25 mg 05/01/19 22:00 Coreg - PO BID PATRICK Enoxaparin Sodium 40 mg 05/01/19 10:00 05/01/19 10:28 Lovenox - SQ 40 mg DAILY PATRICK Administration Piperacillin Sod/Tazobactam 50 mls @ 100 mls/hr 05/01/19 10:00 Sod 3.375 gm/ Dextrose IVPB Q8H-IV PATRICK Protocol Piperacillin Sod/Tazobactam 50 mls @ 100 mls/hr 05/01/19 04:45 05/01/19 10:28 Sod 3.375 gm/ Dextrose IVPB 05/01/19 18:29 100 mls/hr Q8H-IV PATRICK Administration Dextrose/Sodium Chloride 20 meq in 1,000 mls @ 100 mls/hr 05/01/19 09:45 10:27 Dextrose 5%-Normal Saline+20 Meq Kcl - IV 100 mls/hr ASDIR PATRICK Administration Potassium Chloride 10 meq in 100 mls @ 100 mls/hr 05/01/19 13:30 Potassium Chloride 10 Meq Premix Ivpb - IVPB 05/01/19 15:29 Q60M PATRICK Pantoprazole Sodium 40 mg 05/01/19 10:00 05/01/19 10:28 Protonix Iv IVPUSH Not Given DAILY PATRICK CBC, BMP 05/01/19 10:10 05/01/19 10:10 CT A/P with contrst IV and PO : Pancreatic duct and cbd dilation with pancreatic enlargment suspicious for malignancy retropertioneal lymphadenopathy left lobe liver hypodensity likely fatty infiltrate less likely newplasm. ASSESSMENT/PLAN: Patient is a 64 year old female with PMH of HTN, GERD, gout, vertigo who presents with nausea, vomiting, and difficulty eating for several weeks. #Lactic acidosis * Concern for sepsis, unknown source. Given pt's RUQ tenderness, GI symptoms, and elevated LFTs/Tbili, suspect hepatobiliary cause * Abd XR showed no acute pathology F/u CT abd/pelvis and head as above suspicious for pancreatic malignanct enlarment vs acute pancreatitis * F/u UA, hepatitis serology, trend lactic acid, and LFTs * Will empirically treat with IV zosyn 3.375mg Q8H and IV NS @ 100ml/hr * IV fluids D5 NS @125 cc * AFP, CA 19-9 . * Follow MRI with contrast #Dysphagia, vomiting, decreased po intake, and weight loss * Recent EGD showed hiatal hernia, neg biopsies. Obtain official EGD results from [facility]. * Consulting GI * speech swallow eval for dysphagia w/u, recommend thin liquid diet * Hypokalemia likely 2/2 to decreased po intake as well as Hctz medication. Repleting with KCl * F/u serum magnesium and cont to trend LFTs * PPI 40 daily #HTN * Hold BP medications in possible setting of sepsis and poor po intake * Will restart if pt becomes hypertensive/when clinically appropriate #Vertigo * meclizime 25 TID * Vestibular rehab as outpt #FEN * IVF: D5NS @ 125 ml/hr with 20 KCL * Repleting potassium with IV KCl * clear liquid diet #DVT ppx * Lovenox 40mg SQ #Dispo * Monitor on med-surg * Full code Visit type - Emergency Visit Emergency Visit: Yes ED Registration Date: 05/01/19 Care time: The patient presented to the Emergency Department on the above date and was hospitalized for further evaluation of their emergent condition. - New Patient This patient is new to me today: Yes Date on this admission: 05/01/19 - Critical Care Critical Care patient: No ATTENDING PHYSICIAN STATEMENT I saw and evaluated the patient. I reviewed the resident's note and discussed the case with the resident. I agree with the resident's findings and plan as documented. SUBJECTIVE: OBJECTIVE: ASSESSMENT AND PLAN:
--- NOTE | 2019-05-01 14:10 | CON.GI ---
Consult Consult Specialty:: GI Referred by:: Hospitalist Service Reason for Consultation:: Dysphagia, weight loss - History of Present Illness Chief Complaint: "I was scared because I have been having problems eating" History of Present Illness: 64F admitted for evaluation of weight loss and dysphagia. She describes a 50 pound weight loss over the last 3-4 months. She states seeing senior marketing analyst Dr. Diaz at [facility] 04/17/19 for these complaints. She describes being told of acid reflux, a hiatal hernia and that "biopsies were clear". It is unclear why shs did not seek continued evaluation at the hospital where her senior marketing analyst has privileges. She states having normal bowel movements. She has not had a recent colonoscopy "due to the cost". She denies rectal bleeding, melena. There is no family history of colon cancer. Her father has small bowel cancer. she denies medical problems yet her home medication list includes oxycodone and coreg. She states that after a recent fall (fell on buttocks), she has had pain along her lower ribs and chest. - History Source History Provided By: Patient - Past Medical History Additional Medical History: Denies - Past Surgical History Additional Surgical History: Breast Reduction bilaterally - Alcohol/Substance Use Hx Alcohol Use: No History of Substance Use: reports: None - Smoking History Smoking history: Current every day smoker (quit 04/18/19 per patient. < 1/2 pack per day for 20 years) Aproximately how many cigarettes per day: 10 - Social History Usual Living Arrangement: Alone ADL: Independent Occupation: [employer]: worked for [employer] [facility] History of Recent Travel: No Home Medications - Allergies Allergies/Adverse Reactions: Allergies Allergy/AdvReac Type Severity Reaction Status Date / Time No Known Allergies Allergy Verified 04/30/19 22:36 - Home Medications Home Medications: Ambulatory Orders Carvedilol 12.5 mg PO DAILY 04/30/19 Hydrochlorothiazide [Hctz -] 0 mg PO DAILY 04/30/19 Oxycodone HCl/Acetaminophen [Oxycodone-Acetaminophen 5-325] 1 each PO PRN PRN Pantoprazole Sodium 40 mg PO DAILY 04/30/19 Family Disease History - Family Disease History Family Disease History: Other: Father (: small bowel cancer), Mother (: 98: "old age"), Brother (1, healthy), Sister (2, healthy) Other Family History: No children. No family history of colorectal cancer Review of Systems - Review of Systems Constitutional: reports: Unintentional Wgt. Loss. denies: Diaphoresis, Fever Cardiovascular: denies: Chest Pain Respiratory: denies: Cough Gastrointestinal: reports: Dysphagia. denies: Abdominal Pain, Constipation, Diarrhea, Rectal Bleeding, Vomiting Physical Exam-GI Vital Signs: Vital Signs Temperature 97.8 F 05/01/19 07:45 Pulse Rate 57 L 05/01/19 07:45 Respiratory Rate 18 05/01/19 07:45 Blood Pressure 141/83 05/01/19 07:45 O2 Sat by Pulse Oximetry (%) 100 05/01/19 05:53 Constitutional: Yes: Calm Eyes: No: Sclera Icterus Cardiovascular: Yes: Regular Rate and Rhythm. No: Murmur Respiratory: Yes: CTA Bilaterally Gastrointestinal Inspection: No: Distention, Scars ...Auscultate: Yes: Normoactive Bowel Sounds ...Palpate: Yes: Tenderness (upon palpation of left and right lower ribs) ...Percussion: No: Tympanitic Edema: No (No LE edema) Neurological: Yes: Alert Labs: CBC, BMP 05/01/19 10:10 05/01/19 10:10 Problem List - Problems (1) Abdominal pain Assessment/Plan: Seems to be along lower ribs and patient states it started after a fall. otherwise unrevealing abdominal exam. For CT scan of the abdomen and pelvis with PO/IV contrast. Code(s): R10.9 - UNSPECIFIED ABDOMINAL PAIN (2) Dysphagia Assessment/Plan: Recent EGD this month: Obtain EGD / pathology reports and establish follow-up for the patient with Dr. Diaz. Protonix 40mg once daily for now Code(s): R13.10 - DYSPHAGIA, UNSPECIFIED (3) Weight loss Assessment/Plan: As above, Await CT scan result, obtain results from recent GI work-up Code(s): R63.4 - ABNORMAL WEIGHT LOSS
--- NOTE | 2019-05-01 14:21 | CONSULT ---
Admitting History and Physical - Primary Care Physician PCP: Alexia Blackman - Admission History of Present Illness: Per EMR- 64 yof with PMhx of HTN, GERD, gout, vertigo, hiatal hernia admitted with nausea , vomiting, dysphagia abdominal pain and weight loss. -Nausea, vomiting, abdominal pain, early satiety, weight loss, r/o Infectious vs inflammatory bowel disease, malignancy -Lactic acidosis, suspect from hypovolumia -Severe hypokalemia -Hiatal hernia -Fall -HTN -Gout Pt reports difficulty with po intake a few months ago, feeling so bloated and full like she had a Thanksgiving dinner with subsequent pain.She would cough and hiccough.She began losing weight. EGD was unremarkable.She said sometimes she would cough and get a "bout of vertigo where the room would spin and her leg would give way and she would fall." This happened recently. She said she still has this "vertigo feeling" and it affects her vision. She has a blue blob in her right eye presently. History Source: Patient Limitations to Obtaining History: No Limitations - Smoking History Smoking history: Current every day smoker (quit 04/18/19 per patient. < 1/2 pack per day for 20 years) Aproximately how many cigarettes per day: 10 - Alcohol/Substance Use Hx Alcohol Use: No History of Substance Use: reports: None - Social History ADL: Independent Occupation: [employer]: worked for [employer] History of Recent Travel: No History - Admission Reason For Visit: INCREASES LACTIC ACID LEVEL.ABDOMINAL PAIN,HYKOLEM - Diagnostics X-ray: Report Reviewed (cxr (-)) CT Scan: Pending (abd), Report Reviewed (CT head) - General Mental Status: Alert and Oriented, Awake and Alert, Able to Follow Commands Attention: Intact Ability to Follow Directions: Excellent Head/Neck Control: WFL - Hearing Hearing: Normal Speech Evaluation - Communication Primary Language: MALIAN Communication: Yes: Within Normal Limits Oral Expression Ability: Yes: No Impairment - Speech Production Able to Make Needs Known: Yes: WNL Intelligibility: Yes: WNL - Speech Characteristics Voice Loudness: Normal Voice Pitch: Yes: Normal Voice Phonatory-based Quality: Yes: Normal Speech Pattern: Normal Speech Clarity: < 100% Nasal Resonance: Normal Articulation: Yes: Precise Rate of Speech: Intact - Language/Auditory Comprehension Follows: Yes: 2 Stage Simple Commands - Language/Verbal Expression Able to Respond to Simple Queries: Yes: WNL Able to Communicate Wants and Needs: Yes: WNL Functional Communication Status: Yes: WNL - Swallow Evaluation/Bedside Assessment Current Nutritional Intake: Clear Liquids Oral Secretions: Yes: WFL Facial Symmetry at Rest: Symmetrical Facial Symmetry on Retraction: Symmetrical Sensation: Normal Against Resistance Opening: Normal Against Resistance Closing: Normal Pucker Lips: Normal Smile: Normal Lingual Movement: Normal, Symmetric Lingual Speed of Movement: Normal Lingual Movement Strgth Against Opposition: Normal Lingual Movement Characteristics: Normal Velopharyngeal Movement: Normal Laryngeal Elevation: WFL Laryngeal Movement: Able to Palpate Rate of Intake: WFL Bolus Size: WFL Labial Seal: WFL Chewing: WFL Oral Prep Time: WFL A-P Transit: WFL Timing of Swallow: WFL Coughing/Throat Clear: No Change in Voice: No Recommendations - Speech Evaluation, Impression/Plan Impression: Tolerates thin liquid. c/o bouts of "vertigo" when "everything spins ", then her legs give way and she drops to the floor. She is reporting visual changes -right eye "blue blob". CT head (-) CT abd pending. h/o weight /loss bloating - Dysphagia Impressions/Plan *Silent aspiration: cannot be R/O at bedside Recommendations: Neuro Consult (consider vertigo vs brainstem? Nursing aware), GI Consult (f/u) - Recommendations Liquids: Thin Liquids
[2019-05-01] MEDS: KCL 10 MEQ IVPB 10 MEQ/100 ML INFUS.BAG IVPB SCH ×2 (14:22→17:26)
[2019-05-01] MEDS ORDERED: SODIUM CHLORIDE 1,000 ML IV STA (17:56)
[2019-05-01] MEDS: D5-NS + 20 MEQ KCL - 20 MEQ/1,000 ML INFUS.BAG IV SCH (18:44)
[2019-05-01] MEDS: CARVEDILOL 6.25 MG TABLET (FP) PO SCH (21:51)
[2019-05-02] MEDS: D5-NS + 20 MEQ KCL - 20 MEQ/1,000 ML INFUS.BAG IV SCH (01:00)
[2019-05-02 01:42] LABS: PH,URINE 5.5 (5.0-8.0); URINE APPEARANCE CLEAR; URINE BILIRUBIN NEGATIVE (NEGATIVE); URINE COLOR YELLOW; URINE GLUCOSE (UA) NEGATIVE (NEGATIVE); URINE KETONE TRACE (NEGATIVE)
[2019-05-02 01:43] LABS: URINE LEUK ESTERASE NEGATIVE (NEGATIVE); URINE NITRITE NEGATIVE (NEGATIVE); URINE PROTEIN NEGATIVE (NEGATIVE); URINE RBC 1.7 /hpf (0-4)
[2019-05-02 01:44] LABS: EPI CELLS 4.3 /HPF (0-5/HPF); HYALINE CASTS 3.76 /lpf (0-8); URINE BACTERIA 0.2 /hpf (NEGATIVE); URINE WBC 1.7 /hpf (0-5)
[2019-05-02] MEDS ORDERED: PROCHLORPERAZINE INJECTION 10 MG/2 ML VIAL IVPB ONE (06:49)
[2019-05-02 07:26] LABS: BASO % 0.5 % (0-2.0); HEMATOCRIT 31.8 % (32.4-45.2); HEMOGLOBIN 11.1 GM/dL (10.7-15.3); LYMPH % 23.3 % (8-40); MCH 29.6 pg (25.7-33.7); MCHC 34.8 g/dl (32.0-36.0); MEAN PLT VOLUME 7.7 fl (7.5-11.1); MONO % 6.1 % (3.8-10.2); NEUT % 69.1 % (42.8-82.8); PLATELET COUNT 183 K/MM3 (134-434); RBC 3.74 M/mm3 (3.60-5.2); WHITE BLOOD COUNT 5.6 K/mm3 (4.0-10.0)
--- NOTE | 2019-05-02 07:47 | PN.GI ---
GI Progress Note Subjective: STATES SHE IS FEELING WEAK TODAY - JUST GETTING BACK FROM MRI NO NEW COMPLAINTS - Objective Vital Signs: Vital Signs Temperature 98.9 F 05/02/19 06:00 Pulse Rate 54 L 05/02/19 06:00 Respiratory Rate 18 05/02/19 06:00 Blood Pressure 154/78 05/02/19 06:00 O2 Sat by Pulse Oximetry (%) 98 05/01/19 21:00 Constitutional: Well Nourished, No Distress, Calm Eyes: Yes: WNL HENT: Yes: WNL Neck: Yes: WNL Cardiovascular: Yes: WNL, Regular Rate and Rhythm Respiratory: Yes: WNL, Regular, CTA Bilaterally Gastrointestinal Inspection: Yes: WNL ...Auscultate: Yes: Normoactive Bowel Sounds Extremities: Yes: WNL Edema: No Problem List - Problems (1) Pancreatic abnormality Assessment/Plan: CT SCAN REVIEWED -- PANCREATIC ABNORMALITY ? ENCASEMENT OF THE SMA/ RP LYMPHADENOPATHY - SUSPICIOUS FOR CA AWAIT MRCP RESULTS FOR FURTHER REC. 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
[2019-05-02 07:52] LABS: ALBUMIN 2.6 g/dl (3.4-5.0); BILIRUBIN,TOTAL 1.1 mg/dL (0.2-1); BLOOD UREA NITROGEN 11.3 mg/dL (7-18); CALCIUM 7.8 mg/dL (8.5-10.1); CREATININE 0.8 mg/dL (0.55-1.3); POTASSIUM 3.3 mmol/L (3.5-5.1); TOT PROT 5.7 g/dl (6.4-8.2)
[2019-05-02] MEDS ORDERED: POTASSIUM CHLORIDE TABS 20 MEQ TABLET.ER (FP) PO ONE (08:02)
[2019-05-02] MEDS: CARVEDILOL 6.25 MG TABLET (FP) PO SCH ×2 (11:18→21:25)
[2019-05-02] MEDS: ENOXAPARIN NA (PORCINE) 40 MG/0.4 ML DISP.SYRIN SQ SCH (11:19)
[2019-05-02] MEDS: PANTOPRAZOLE 40 MG TABLET (FP) PO SCH (11:19)
--- NOTE | 2019-05-02 11:44 | PN ---
Physical Exam: SUBJECTIVE: Patient seen and examined, still with nausea, early satiety, poor oral intake, upper abdominal discomfort. OBJECTIVE: Vital Signs Period Temp Pulse Resp BP Sys/Sy Pulse Ox Last 24 Hr 97.8 F-98.9 F 52-64 18-20 138-154/78-91 95-98 Intake & Output 04/29/19 04/30/19 05/01/19 05/02/19 23:59 23:59 23:59 23:59 Intake Total 800 2810 Output Total 750 330 Balance 50 2480 Weight 184 lb 198 lb 198 lb 6 oz General: sitting in bed in no acute distress Neck: soft, supple CVS:S1S2 regular Chest: CTAB, no rales or wheezing Abdomen:soft, vague epigastric/supra-umbilical tenderness, no voluntary or involuntary guarding or rigidity, pos bowel sounds extremities: no edema Laboratory Results - last 24 hr 05/01/19 05/01/19 05/01/19 05:00 10:10 10:10 WBC RBC Hgb Hct MCV MCH MCHC RDW Plt Count MPV Absolute Neuts (auto) Neutrophils % Lymphocytes % Monocytes % Eosinophils % Basophils % Nucleated RBC % Sodium 142 Potassium 3.2 L Chloride 104 Carbon Dioxide 26 Anion Gap 12 BUN 16.2 Creatinine 0.8 Est GFR (CKD-EPI)AfAm 90.30 Est GFR (CKD-EPI)NonAf 77.91 Random Glucose 97 Calcium 8.6 Magnesium Total Bilirubin 1.3 H Direct Bilirubin AST 43 H ALT 40 Alkaline Phosphatase 112 Total Protein 6.2 L Albumin 3.0 L Urine Color Urine Appearance Urine pH Ur Specific Cool Urine Protein Urine Glucose (UA) Urine Ketones Urine Blood Urine Nitrite Urine Bilirubin Urine Urobilinogen Ur Leukocyte Esterase Urine WBC (Auto) Urine RBC (Auto) 5.7 Urine Casts (Auto) U Pathogenic Cast Auto None seen U Epithel Cells (Auto) Urine Bacteria (Auto) Hep A IgM Ab Confirm Negative Hep Bs Antigen Negative Hep B Core IgM Ab Negative Hepatitis C Ab (EIA) <0.1 05/01/19 05/01/19 05/02/19 10:10 18:45 06:50 WBC 5.6 RBC 3.74 Hgb 11.1 Hct 31.8 L MCV 85.0 MCH 29.6 MCHC 34.8 RDW 14.0 Plt Count 183 MPV 7.7 Absolute Neuts (auto) 3.8 Neutrophils % 69.1 Lymphocytes % 23.3 D Monocytes % 6.1 Eosinophils % 1.0 D Basophils % 0.5 D Nucleated RBC % 0 Sodium Cancelled Potassium Cancelled Chloride Cancelled Carbon Dioxide Cancelled Anion Gap Cancelled BUN Cancelled Creatinine Cancelled Est GFR (CKD-EPI)AfAm Cancelled Est GFR (CKD-EPI)NonAf Cancelled Random Glucose Cancelled Calcium Cancelled Magnesium 2.0 Total Bilirubin 1.3 H Direct Bilirubin 0.6 H AST 45 H ALT 39 Alkaline Phosphatase 116 Total Protein 6.2 L Albumin 2.9 L Urine Color Yellow Urine Appearance Clear Urine pH 5.5 Ur Specific Cool 1.048 H Urine Protein Negative Urine Glucose (UA) Negative Urine Ketones Trace H Urine Blood Negative Urine Nitrite Negative Urine Bilirubin Negative Urine Urobilinogen 1.0 Ur Leukocyte Esterase Negative Urine WBC (Auto) 1.7 Urine RBC (Auto) 1.7 Urine Casts (Auto) 3.76 U Pathogenic Cast Auto U Epithel Cells (Auto) 4.3 Urine Bacteria (Auto) 0.2 Hep A IgM Ab Confirm Hep Bs Antigen Hep B Core IgM Ab Hepatitis C Ab (EIA) 05/02/19 06:50 WBC RBC Hgb Hct MCV MCH MCHC RDW Plt Count MPV Absolute Neuts (auto) Neutrophils % Lymphocytes % Monocytes % Eosinophils % Basophils % Nucleated RBC % Sodium 143 Potassium 3.3 L Chloride 110 H Carbon Dioxide 27 Anion Gap 7 L BUN 11.3 Creatinine 0.8 Est GFR (CKD-EPI)AfAm 90.30 Est GFR (CKD-EPI)NonAf 77.91 Random Glucose 146 H Calcium 7.8 L Magnesium Total Bilirubin 1.1 H Direct Bilirubin AST 39 H ALT 38 Alkaline Phosphatase 104 Total Protein 5.7 L Albumin 2.6 L Urine Color Urine Appearance Urine pH Ur Specific Cool Urine Protein Urine Glucose (UA) Urine Ketones Urine Blood Urine Nitrite Urine Bilirubin Urine Urobilinogen Ur Leukocyte Esterase Urine WBC (Auto) Urine RBC (Auto) Urine Casts (Auto) U Pathogenic Cast Auto U Epithel Cells (Auto) Urine Bacteria (Auto) Hep A IgM Ab Confirm Hep Bs Antigen Hep B Core IgM Ab Hepatitis C Ab (EIA) Active Medications Home Medications Medication Instructions Recorded Carvedilol 12.5 mg PO DAILY 04/30/19 Hydrochlorothiazide [Hctz -] 0 mg PO DAILY 04/30/19 Oxycodone HCl/Acetaminophen 1 each PO PRN PRN 04/30/19 [Oxycodone-Acetaminophen 5-325] Pantoprazole Sodium 40 mg PO DAILY 04/30/19 Generic Name Dose Route Start Last Admin Trade Name Stephania PRN Reason Stop Dose Admin Carvedilol 6.25 mg 05/01/19 22:00 05/02/19 11:18 Coreg - PO 6.25 mg BID PATRICK Administration Enoxaparin Sodium 40 mg 05/01/19 10:00 05/02/19 11:19 Lovenox - SQ 40 mg DAILY PATRICK Administration Dextrose/Sodium Chloride 20 meq in 1,000 mls @ 125 mls/hr 05/01/19 17:56 01:00 Dextrose 5%-Normal Saline+20 Meq Kcl - IV 125 mls/hr ASDIR PATRICK Administration Pantoprazole Sodium 40 mg 05/02/19 10:00 05/02/19 11:19 Protonix - PO 40 mg DAILY PATRICK Administration CT A/P results reviewed CT brain rsults reviewed ASSESSMENT/PLAN: 64 yof with PMhx of HTN, GERD, gout, vertigo, hiatal hernia admitted with nausea , vomiting, dysphagia abdominal pain and weight loss. -Nausea, vomiting, abdominal pain, early satiety, weight loss, -Pancreatic/CBD dilatation, r/o pancreatic malignancy -Left hepatic lobe lesion -r/o acute pancreatitis -Hypokalemia -Lactic acidosis, suspect from hypovolumia -Severe hypokalemia -Hiatal hernia -Fall -HTN -Gout Plan: CT A/P results reviewed. Follow up MRCP with contrast. Check CA 19-9, AFP. IVF, supportive treatment. Monitor off abx. Speech/swallow eval. Nutrition Consult. Replete K. PT eval Continue coreg. DVTPPX lovenox Dispo pending above work up, clinical improvement and disposition arrangements. Discussed with patient and nursing, all questions answered. Visit type - Emergency Visit Emergency Visit: Yes ED Registration Date: 05/01/19 Care time: The patient presented to the Emergency Department on the above date and was hospitalized for further evaluation of their emergent condition. - New Patient This patient is new to me today: No - Critical Care Critical Care patient: No - Discharge Referral Referred to [facility] No
[2019-05-03] MEDS: D5-NS + 20 MEQ KCL - 20 MEQ/1,000 ML INFUS.BAG IV SCH ×3 (03:00→21:20)
[2019-05-03] MEDS ORDERED: PROCHLORPERAZINE MALEATE 5 MG TABLET PO ONE (06:17)
--- NOTE | 2019-05-03 08:19 | PN.GI ---
GI Progress Note Subjective: NO NEW COMPLAINTS - STILL WITH ABDOMINAL PAIN - Objective Vital Signs: Vital Signs Temperature 98.4 F 05/03/19 06:00 Pulse Rate 64 05/03/19 06:00 Respiratory Rate 18 05/03/19 06:00 Blood Pressure 153/86 05/03/19 06:00 O2 Sat by Pulse Oximetry (%) 97 05/02/19 21:00 Constitutional: Well Nourished, No Distress, Calm Eyes: Yes: WNL HENT: Yes: WNL Neck: Yes: WNL, Supple Cardiovascular: Yes: WNL, Regular Rate and Rhythm Respiratory: Yes: WNL, Regular, CTA Bilaterally Gastrointestinal Inspection: Yes: WNL ...Auscultate: Yes: Normoactive Bowel Sounds Extremities: Yes: WNL Edema: No Labs: CBC, BMP 05/02/19 06:50 05/02/19 06:50 Problem List - Problems (1) Pancreatic abnormality Assessment/Plan: MRCP REVIEWED PANCREATIC HEAD MASS LESION WITH INVOLVEMENT OF THE SMV - ADVANCED STAGE ; NO SIGN OF OBSTRUCTION AT THIS TIME. ONCOLOGY EVALUATION PLAN FOR TRANSFER TO [facility] FOR FURTHER EVALUATION AND MANAGEMENT DISCUSSED WITH PRIMARY MEDICAL TEAM Code(s): Q45.3 - [facility] CONGENITAL MALFORMATIONS OF PANCREAS AND PANCREATIC DUCT (2) Abdominal pain Code(s): R10.9 - UNSPECIFIED ABDOMINAL PAIN (3) Dysphagia Code(s): R13.10 - DYSPHAGIA, UNSPECIFIED (4) Weight loss Code(s): R63.4 - ABNORMAL WEIGHT LOSS
[2019-05-03] MEDS: ENOXAPARIN NA (PORCINE) 40 MG/0.4 ML DISP.SYRIN SQ SCH (09:52)
[2019-05-03] MEDS: CARVEDILOL 6.25 MG TABLET (FP) PO SCH ×2 (09:52→21:20)
[2019-05-03] MEDS: PANTOPRAZOLE 40 MG TABLET (FP) PO SCH (09:52)
[2019-05-03 11:45] LABS: COCAINE, UR NEGATIVE ng/ml (CUTOFF=300); METHADONE, UR NEGATIVE ng/ml (CUTOFF=300); OPIATES, URI NEGATIVE ng/ml (CUTOFF=300); PHENCYCLIDINE,URINE NEGATIVE ng/ml (CUTOFF=25); URINE AMPHETAMINES NEGATIVE ng/ml (CUTOFF=500); URINE BARBITURATES NEGATIVE ng/ml (CUTOFF=200); URINE BENZODIAZEPINES NEGATIVE ng/ml (CUTOFF=200)
[2019-05-03] MEDS ORDERED: PROMETHAZINE HCL 50 MG/1 ML AMP IM PRN (13:31)
[2019-05-03] MEDS ORDERED: PROMETHAZINE HCL 25 MG/1 ML VIAL IM PRN (13:45)
[2019-05-03] MEDS ORDERED: POTASSIUM CHLORIDE TABS 20 MEQ TABLET.ER (FP) PO ONE (14:12)
--- NOTE | 2019-05-03 14:30 | PN ---
Physical Exam: SUBJECTIVE: Patient seen and examined, still with nausea and epigastric pain, toleating clears. Feels 'loopy', also ongoing symptoms of blurry vision right eye, feels like 'curtain down'. OBJECTIVE: Vital Signs Period Temp Pulse Resp BP Sys/Sy Pulse Ox Last 24 Hr 98.0 F-98.5 F 62-68 18-18 151-160/81-90 97-97 Intake & Output 04/30/19 05/01/19 05/02/19 05/03/19 23:59 23:59 23:59 23:59 Intake Total 800 4880 1730 Output Total 750 930 600 Balance 50 3950 1130 Weight 184 lb 198 lb 198 lb 6 oz 199 lb 3 oz Intake & Output 04/30/19 05/01/19 05/02/19 05/03/19 23:59 23:59 23:59 23:59 Intake Total 800 4880 1730 Output Total 750 930 600 Balance 50 3950 1130 Weight 184 lb 198 lb 198 lb 6 oz 199 lb 3 oz General: sitting in bed in no acute distress Neck: soft, supple CVS:S1S2 regular Chest: CTAB, no rales or wheezing Abdomen:soft, vague epigastric/supra-umbilical tenderness, no voluntary or involuntary guarding or rigidity, pos bowel sounds extremities: no edema HEENT: PERRL, Blurring vision right eye, uni-ocular, reports black, like "curtain" Laboratory Results - last 24 hr 05/03/19 11:15 Opiates Screen Negative Methadone Screen Negative Barbiturate Screen Negative Phencyclidine Screen Negative Ur Amphetamines Screen Negative MDMA (Ecstasy) Screen Negative Benzodiazepines Screen Negative Cocaine Screen Negative U Marijuana (THC) Screen Negative Active Medications Generic Name Dose Route Start Last Admin Trade Name Freq PRN Reason Stop Dose Admin Carvedilol 6.25 mg 05/01/19 22:00 05/03/19 09:52 Coreg - PO 6.25 mg BID PATRICK Administration Enoxaparin Sodium 40 mg 05/01/19 10:00 05/03/19 09:52 Lovenox - SQ 40 mg DAILY PATRICK Administration Dextrose/Sodium Chloride 20 meq in 1,000 mls @ 125 mls/hr 05/01/19 17:56 12:15 Dextrose 5%-Normal Saline+20 Meq Kcl - IV 125 mls/hr ASDIR PATRICK Administration Pantoprazole Sodium 40 mg 05/02/19 10:00 05/03/19 09:52 Protonix - PO 40 mg DAILY PATRICK Administration Promethazine HCl 25 mg 05/03/19 13:45 Phenergan Injection - IM Q8H PRN NAUSEA ASSESSMENT/PLAN: 64 yof with PMhx of HTN, GERD, gout, vertigo, hiatal hernia admitted with nausea , vomiting, dysphagia abdominal pain and weight loss. -Pancreatic Mass encasing SMV with CBD/pancreatic ductal dilatation -Blurry vision -r/o acute pancreatitis -Hypokalemia -Lactic acidosis, suspect from hypovolumia -Severe hypokalemia -Hiatal hernia -Fall -HTN -Gout Plan: MRCP results reviewed. LFTs stable, normal Bilirubin. ?Tertiary care transfer. Follow up GI recs. Follow up CA 19-9, AFP. IVF, supportive treatment. Monitor off abx. Ophthalmology eval. Speech/swallow eval. Nutrition Consult. Replete K prn. PT eval Continue coreg. DVTPPX lovenox Dispo possible transfer to tertiary care center given new diagnosis of pancreatic mass and ongoing symptoms pending GI input. Discussed with patient and nursing, all questions answered. Visit type - Emergency Visit Emergency Visit: Yes ED Registration Date: 05/01/19 Care time: The patient presented to the Emergency Department on the above date and was hospitalized for further evaluation of their emergent condition. - New Patient This patient is new to me today: No - Critical Care Critical Care patient: No - Discharge Referral Referred to [facility] No
--- NOTE | 2019-05-03 16:29 | CONSULT ---
Consult Consult Specialty:: Hematology and Medical Oncology Reason for Consultation:: MRCP revealing pancreatic mass - History of Present Illness Chief Complaint: Vertigo. Dysphagia. Significant weight loss History of Present Illness: 64 y/o lady admitted for vertigo, weight loss and dysphagia. Pt mentioned had cough as well. She has lost 50 pound in the last 4 months. Had an EGD which showed a hiatal hernia but patient reports biopsies were negative. She also reports a fall (secondary to vertigo). CT and MRCP showing pancreatic mass. - History Source History Provided By: Patient Limitations to Obtaining History: No Limitations - Past Medical History Additional Medical History: Denies - Past Surgical History Additional Surgical History: Breast Reduction bilaterally - Alcohol/Substance Use Hx Alcohol Use: No History of Substance Use: reports: None - Smoking History Smoking history: Current every day smoker (quit 04/18/19 per patient. < 1/2 pack per day for 20 years) Aproximately how many cigarettes per day: 10 - Social History Usual Living Arrangement: Alone ADL: Independent Occupation: [employer]: worked for [employer] History of Recent Travel: No Home Medications - Allergies Allergies/Adverse Reactions: Allergies Allergy/AdvReac Type Severity Reaction Status Date / Time No Known Allergies Allergy Verified 04/30/19 22:36 - Home Medications Home Medications: Ambulatory Orders Carvedilol 12.5 mg PO DAILY 04/30/19 Oxycodone HCl/Acetaminophen [Oxycodone-Acetaminophen 5-325] 1 each PO PRN PRN Pantoprazole Sodium 40 mg PO DAILY 04/30/19 Enoxaparin [Lovenox -] 40 mg SQ DAILY disp.syrin 05/03/19 Promethazine Inj (IM Use Only) [Phenergan (IM Use Only) -] 25 mg IM Q8H PRN amp 05/03/19 Family Disease History - Family Disease History Family Disease History: Other: Father (: small bowel cancer), Mother (: 98: "old age"), Brother (1, healthy), Sister (2, healthy) Other Family History: No children. No family history of colorectal cancer Review of Systems - Review of Systems Constitutional: reports: Unintentional Wgt. Loss (50 lb in 4 months) Eyes: reports: Recent Change in Vision (Mentioned cannot read TV ads), Other Respiratory: reports: Cough Gastrointestinal: reports: Abdominal Pain Genitourinary: reports: No Symptoms Musculoskeletal: reports: No Symptoms Integumentary: reports: No Symptoms Neurological: reports: No Symptoms, Other (Reported vertigo) Endocrine: reports: No Symptoms Hematology/Lymphatic: reports: No Symptoms Psychiatric: reports: No Symptoms Physical Exam Vital Signs: Vital Signs Temperature 98.0 F 05/03/19 08:14 Pulse Rate 68 05/03/19 08:14 Respiratory Rate 18 05/03/19 08:14 Blood Pressure 160/90 05/03/19 08:14 O2 Sat by Pulse Oximetry (%) 97 05/03/19 09:00 Constitutional: Yes: Well Nourished, No Distress, Calm Eyes: Yes: WNL, Conjunctiva Clear HENT: Yes: WNL, Atraumatic, Normocephalic Neck: Yes: WNL, Supple, Trachea Midline Cardiovascular: Yes: WNL, Regular Rate and Rhythm Gastrointestinal: Yes: WNL, Normal Bowel Sounds, Soft, Tenderness, Tenderness, Epigastrium (Tender epigastrium and RUQ) ...Rectal Exam: Yes: Deferred Musculoskeletal: Yes: WNL Extremities: Yes: WNL Integumentary: Yes: WNL Neurological: Yes: WNL, Alert, Oriented Labs: CBC, BMP 05/02/19 06:50 05/02/19 06:50 Assessment/Plan 64 y/o lady with past medical history of HTN, GERD, gout, vertigo, hiatal hernia admitted with nausea, vomiting, dysphagia, abdominal pain and weight loss. A pancreatic mass present in MRCP suspicious for malignancy. 1. Large pancreatic mass: MRCP revealed a large mass of the head of the pancreas extending to the body, 3.7 cm in AP dimension, 4.7 cm in width and 6 cm in height. It encases the SMV and reaches the right aspect of the SMA. It involves the CBD with dilatation (12 mm) and has a distended gallbladder. Plan: 1) Large pancreatic mass suspicious for malignancy. Will need a biopsy to confirm the possibility of pancreatic adenocarcinoma. EUS or as per GI team. High quality Pancreatic protocol CT may also be considered. CT Chest, Abdomen and Pelvis to rule out metastatic disease. PET-CT after obtaining prior high quality imaging may be considered. If metastatic disease is not present, a surgical evaluation should be obtained to determine if the disease is borderline resectable or unresectable. Multidisciplinary conference is the ideal management strategy including surgical, radiation and medical oncologists. If diagnosis is confirmed germline mutation screening is recommended. Referral to [facility] per primary team and GI is also being considered. 2) Total bilirubin normal-mildly elevated. 3) CEA19 and AFP ordered by primary team. 4) Thank you very much for this consultation.
--- NOTE | 2019-05-03 17:53 | DS ---
Physical Exam: SUBJECTIVE: Patient seen and examined, still with nausea, vomiting, epigastric discomfort, poor oral intake, blurry vision. OBJECTIVE: Vital Signs Period Temp Pulse Resp BP Sys/Sy Pulse Ox Last 24 Hr 98.0 F-98.5 F 62-68 18-18 151-160/81-90 97-97 Intake & Output 04/30/19 05/01/19 05/02/19 05/03/19 23:59 23:59 23:59 23:59 Intake Total 800 4880 1930 Output Total 810 511 4848 Balance 50 3950 680 Weight 184 lb 198 lb 198 lb 6 oz 198 lb 6.656 oz PHYSICAL EXAM General: sitting in bed in no acute distress Neck: soft, supple CVS:S1S2 regular Chest: CTAB, no rales or wheezing Abdomen:soft, vague epigastric/supra-umbilical tenderness, no voluntary or involuntary guarding or rigidity, pos bowel sounds Extremities: no edema HEENT: PERRL, Blurring vision right eye, uni-ocular, reports black, like "curtain" LABS Laboratory Results - last 24 hr 05/03/19 11:15 Opiates Screen Negative Methadone Screen Negative Barbiturate Screen Negative Phencyclidine Screen Negative Ur Amphetamines Screen Negative MDMA (Ecstasy) Screen Negative Benzodiazepines Screen Negative Cocaine Screen Negative U Marijuana (THC) Screen Negative Laboratory Last Values WBC 5.6 K/mm3 (4.0-10.0) 05/02/19 06:50 RBC 3.74 M/mm3 (3.60-5.2) 05/02/19 06:50 Hgb 11.1 GM/dL (10.7-15.3) 05/02/19 06:50 Hct 31.8 % (32.4-45.2) L 05/02/19 06:50 MCV 85.0 fl (80-96) 05/02/19 06:50 MCH 29.6 pg (25.7-33.7) 05/02/19 06:50 MCHC 34.8 g/dl (32.0-36.0) 05/02/19 06:50 RDW 14.0 % (11.6-15.6) 05/02/19 06:50 Plt Count 183 K/MM3 (134-434) 05/02/19 06:50 MPV 7.7 fl (7.5-11.1) 05/02/19 06:50 Absolute Neuts (auto) 3.8 K/mm3 (1.5-8.0) 05/02/19 06:50 Neutrophils % 69.1 % (42.8-82.8) 05/02/19 06:50 Lymphocytes % 23.3 % (8-40) D 05/02/19 06:50 Monocytes % 6.1 % (3.8-10.2) 05/02/19 06:50 Eosinophils % 1.0 % (0-4.5) D 05/02/19 06:50 Basophils % 0.5 % (0-2.0) D 05/02/19 06:50 Nucleated RBC % 0 % (0-0) 05/02/19 06:50 Sodium 143 mmol/L (136-145) 05/02/19 06:50 Potassium 3.3 mmol/L (3.5-5.1) L 05/02/19 06:50 Chloride 110 mmol/L (98-107) H 05/02/19 06:50 Carbon Dioxide 27 mmol/L (21-32) 05/02/19 06:50 Anion Gap 7 MMOL/L (8-16) L 05/02/19 06:50 BUN 11.3 mg/dL (7-18) 05/02/19 06:50 Creatinine 0.8 mg/dL (0.55-1.3) 05/02/19 06:50 Est GFR (CKD-EPI)AfAm 90.30 05/02/19 06:50 Est GFR (CKD-EPI)NonAf 77.91 05/02/19 06:50 Random Glucose 146 mg/dL (74-106) H 05/02/19 06:50 Lactic Acid 1.4 mmol/L (0.4-2.0) 05/01/19 10:10 Calcium 7.8 mg/dL (8.5-10.1) L 05/02/19 06:50 Magnesium 2.0 mg/dL (1.8-2.4) 05/01/19 10:10 Total Bilirubin 1.1 mg/dL (0.2-1) H 05/02/19 06:50 Direct Bilirubin 0.6 mg/dL (0.0-0.2) H 05/01/19 10:10 AST 39 U/L (15-37) H 05/02/19 06:50 ALT 38 U/L (13-61) 05/02/19 06:50 Alkaline Phosphatase 104 U/L (45-117) 05/02/19 06:50 Creatine Kinase 281 U/L (26-192) H 04/30/19 22:50 Creatine Kinase Index 1.2 % (0.0-5.0) 04/30/19 22:50 CK-MB (CK-2) 3.5 ng/mL (0.5-3.6) 04/30/19 22:50 Troponin I 0.02 ng/ml (0.00-0.05) 04/30/19 22:50 Total Protein 5.7 g/dl (6.4-8.2) L 05/02/19 06:50 Albumin 2.6 g/dl (3.4-5.0) L 05/02/19 06:50 Lipase 43 U/L (73-393) L 04/30/19 22:50 Urine Color Yellow 05/01/19 18:45 Urine Appearance Clear 05/01/19 18:45 Urine pH 5.5 (5.0-8.0) 05/01/19 18:45 Ur Specific [place] 1.048 (1.010-1.035) H 05/01/19 18:45 Urine Protein Negative (NEGATIVE) 05/01/19 18:45 Urine Glucose (UA) Negative (NEGATIVE) 05/01/19 18:45 Urine Ketones Trace (NEGATIVE) H 05/01/19 18:45 Urine Blood Negative (NEGATIVE) 05/01/19 18:45 Urine Nitrite Negative (NEGATIVE) 05/01/19 18:45 Urine Bilirubin Negative (NEGATIVE) 05/01/19 18:45 Urine Urobilinogen 1.0 mg/dL (0.2-1.0) 05/01/19 18:45 Ur Leukocyte Esterase Negative (NEGATIVE) 05/01/19 18:45 Urine WBC (Auto) 1.7 /hpf (0-5) 05/01/19 18:45 Urine RBC (Auto) 1.7 /hpf (0-4) 05/01/19 18:45 Urine Casts (Auto) 3.76 /lpf (0-8) 05/01/19 18:45 U Pathogenic Cast Auto None seen /lpf (NEGATIVE) 05/01/19 05:00 U Epithel Cells (Auto) 4.3 /HPF (0-5/HPF) 05/01/19 18:45 Urine Bacteria (Auto) 0.2 /hpf (NEGATIVE) 05/01/19 18:45 Stool Occult Blood Negative (NEGATIVE) 04/30/19 22:29 Opiates Screen Negative ng/ml (QPXOKV=500) 05/03/19 11:15 Methadone Screen Negative ng/ml (NUCXMY=655) 05/03/19 11:15 Barbiturate Screen Negative ng/ml (TUSMEQ=476) 05/03/19 11:15 Phencyclidine Screen Negative ng/ml (CUTOFF=25) 05/03/19 11:15 Ur Amphetamines Screen Negative ng/ml (WYSPRN=233) 05/03/19 11:15 MDMA (Ecstasy) Screen Negative ng/ml (MSJRJY=181) 05/03/19 11:15 Benzodiazepines Screen Negative ng/ml (EHPQRZ=514) 05/03/19 11:15 Cocaine Screen Negative ng/ml (BIFAWZ=099) 05/03/19 11:15 U Marijuana (THC) Screen Negative ng/ml (CUTOFF=50) 05/03/19 11:15 Hep A IgM Ab Confirm Negative (Negative) 05/01/19 10:10 Hep Bs Antigen Negative (Negative) 05/01/19 10:10 Hep B Core IgM Ab Negative (Negative) 05/01/19 10:10 Hepatitis C Ab (EIA) <0.1 s/co ratio (0.0-0.9) 05/01/19 10:10 CT A/P: Impression: pancreatic enlargement is noted with associated dilatation of the main pancreatic duct and common bile duct suspicious for neoplastic disease. Acute pancreatitis may also be a consideration. MRI/MRCP evaluation is suggested. Retroperitoneal lymphadenopathy is seen. A small left hepatic lobe hypodense focus is seen probably representing incidental focal fatty infiltration, less likely a neoplastic lesion. Correlation with contrast-enhanced MRI is suggested. MRCP: Large mass of the head of the pancreas encasing the SMV and reaching the SMA, it involves the distal CBD with dilatation of the CBD with a distended gallbladder. There also dilatation of the pancreatic duct. There are no enlarged retroperitoneal lymph nodes and no intrahepatic masses. HOSPITAL COURSE: Date of Admission:05/01/19 Date of Discharge: 05/03/19 Minutes to complete discharge: 40 Discharge Summary Reason For Visit: INCREASES LACTIC ACID LEVEL.ABDOMINAL PAIN,HYKOLEM Current Active Problems Abdominal pain (Acute) Dysphagia (Acute) Elevated lactic acid level (Acute) Hypokalemia (Acute) Pancreatic abnormality (Acute) Weight loss (Acute) Hospital Course: 64 yof with PMhx of HTN, GERD, gout, vertigo, hiatal hernia admitted with nausea , vomiting, dysphagia, abdominal pain, poor oral intake and unintentional weight loss around 50 lbs over the last 3-4 months. She reported recent EGD with hiatal hernia and reportedly negative biopsies. She had CT Abdomen/Pelvis showing CBD/pancreatic ductal dilatation, suspicious for pancreatic mass. She had MRCP with results as above, showing large mass at the head of pancreas encasing the SMV/reading the SMA, involves distal CBD with dilatation of the CBD with a distended gallbladder, dilatation of the pancreatic duct, no enlarged retroperitoneal lymph nodes and no intrahepatic masses. She was seen by gastroenterology and oncology and is being transferred to [facility] for additional testing including EUS and further management. She was noted with severe hypokalemia and lactic acidosis that resolved with hydration and supplementation. She also reported blurry vision and was evaluated by ophthalmology and advised outpatient follow up. Condition: Unchanged/Unknown - Instructions Diet, Activity, Other Instructions: You have found with pancreatic mass and being transferred to [facility] for further testing and treatment. Accepting doctor at the facility is Dr. Robles. Disposition: TRANSFER ACUTE CARE/OTHER HOSP - Home Medications Comprehensive Discharge Medication List: Ambulatory Orders Carvedilol 12.5 mg PO DAILY 04/30/19 Oxycodone HCl/Acetaminophen [Oxycodone-Acetaminophen 5-325] 1 each PO PRN PRN Pantoprazole Sodium 40 mg PO DAILY 04/30/19 Enoxaparin [Lovenox -] 40 mg SQ DAILY disp.syrin 05/03/19 Promethazine Inj (IM Use Only) [Phenergan (IM Use Only) -] 25 mg IM Q8H PRN amp 05/03/19 This patient is new to me today: No Emergency Visit: Yes ED Registration Date: 05/01/19 Care time: The patient presented to the Emergency Department on the above date and was hospitalized for further evaluation of their emergent condition. Critical Care patient: No - Discharge Referral Referred to [facility] Med P.C.: No
[2019-05-03 18:43] VITALS: BP 154/90; PULSE 64; TEMP 97.8
== END 2019-05-04 00:15 | disposition short-term general hospital (02) | DRG 254 ==
LOC: JER 20:37 → JERBED 05-01 03:17 → J6S 05-01 06:40
PROVIDERS: ADMIT Internal Medicine; ATTEND Hospitalist
DX: D37.8 Neoplasm of uncertain behavior of other specified digestive organs (principal); K86.9 Disease of pancreas, unspecified; E87.6 Hypokalemia; R13.10 Dysphagia, unspecified; I10 Essential (primary) hypertension; K21.9 Gastro-esophageal reflux disease without esophagitis; R63.4 Abnormal weight loss; Z68.34 Body mass index [BMI] 34.0-34.9, adult; E87.2 Acidosis; K44.9 Diaphragmatic hernia without obstruction or gangrene; M10.9 Gout, unspecified; R10.9 Unspecified abdominal pain; F17.210 Nicotine dependence, cigarettes, uncomplicated; E66.9 Obesity, unspecified; K76.0 Fatty (change of) liver, not elsewhere classified; R11.2 Nausea with vomiting, unspecified; R42 Dizziness and giddiness; R59.1 Generalized enlarged lymph nodes; R63.0 Anorexia
CPT/HCPCS: 36415; 70450-TC; 71045-TC-FY; 74018-TC-FY; 74177-TC; 74182-TC; 80053; 80074; 80076; 80307; 81003; 82105; 82272; 82550; 82553; 83605; 83690; 83735; 84484; 85025; 86301; 93005; 93010; 99284-25; J7030